=== PATIENT | male | born 1995 | race Caucasian/White ===

== ENCOUNTER 2020-09-22 00:27 | Emergency (ER) | payer OTHER ==
[2020-09-22] MEDS ORDERED: IPRATROPIUM/ALBUTEROL 3 ML NEB INH STA (00:56)
--- NOTE | 2020-09-22 01:49 | ED Physician Documentation ---
History of Present Illness - Stated complaint Stated Complaint: SOA - Chief complaint Chief Complaint: Resp - History obtained from History obtained from: Patient - Additonal information Additional information: 25-year-old man, previously healthy presents with wheezing and shortness of breath this morning progressively worsening over the course the day and acutely worsening after he ran out of his inhaler around noon today. He only used 1 puff before realizing that it was empty. Patient is a daily smoker and does not have a formal diagnosis of asthma, but states that after moving to [facility] he began to experience asthma-like symptoms and was given a inhaler by healthcare provider. He is working on getting set up with the pulmonology evaluation. Denies cough, fever, leg swelling, chest pain or pleurisy. He does state that back in April he had an upper respiratory infection but he was Covid negative and since that time he has had some chronic breathing issues. Review of Systems Ten Systems: 10 systems reviewed and negative Constitutional: denies: Fever, Chills Cardiac: denies: Chest pain / pressure Respiratory: reports: Dyspnea. denies: Cough PD PAST MEDICAL HISTORY - Past Medical History Past Medical History: No - Past Surgical History Past Surgical History: No - Present Medications Home Medications: Ambulatory Orders Medication Instructions Recorded Confirmed Albuterol Sulf [Ventolin Hfa 1 - 2 puffs INH Q4HR PRN #1 gm 09/22/20 Inhaler] Albuterol Sulfate [Proair Hfa 2 puffs IH Q4HR PRN 09/22/20 09/22/20 Inhaler] - Allergies Allergies/Adverse Reactions: Allergies Allergy/AdvReac Type Severity Reaction Status Date / Time No Known Drug Allergies Allergy Verified 09/22/20 00:40 - Social History Does the pt smoke?: Yes Smoking Status: Current every day smoker Does the pt drink ETOH?: Yes Does the pt have substance abuse?: No - Immunizations Immunizations are current?: Yes - POLST Patient has POLST: No PD ED PE NORMAL - Vitals Vital signs reviewed: Yes - General General: Alert and oriented X 3, No acute distress, Well developed/nourished - HEENT HEENT: Atraumatic, PERRL, EOMI, Moist mucous membranes - Neck Neck: Supple, no meningeal sign - Cardiac Cardiac: RRR - Respiratory Respiratory: Other (Bilateral scattered wheezing.) - Abdomen Abdomen: Non tender, Non distended - Derm Derm: Normal color - Extremities Extremities: No deformity, No edema - Neuro Neuro: Alert and oriented X 3 - Psych Psych: Normal mood, Normal affect Results - Vitals Vitals: Vital Signs - 24 hr 09/22/20 09/22/20 09/22/20 00:30 01:07 01:10 Temperature 36.4 C L Heart Rate 100 91 91 Respiratory 16 18 16 Rate Blood Pressure 127/85 H 112/77 O2 Saturation 96 99 Oxygen O2 Source T-piece PD MEDICAL DECISION MAKING - ED course ED course: 25-year-old man presented with acute shortness of breath starting this morning and progressively worsening after running out of albuterol inhaler at noon. He experienced significant relief with DuoNeb treatment and his chest x-ray was clear. repeat lung exam with improved air flow and no longer wheezing. Strict return precautions given. Education given about smoking cessation. Patient will follow up with [facility] for pulmonology referral. Departure - Departure Disposition: 01 Home, Self Care Clinical Impression: Asthma exacerbation Condition: Good Instructions: ALBUTEROL Oral Inhaler Prescriptions: Albuterol Sulf [Ventolin Hfa Inhaler] 1 - 2 puffs INH Q4HR PRN #1 gm PRN Reason: Shortness Of Air/Wheezing Comments: You are seen in the emergency department for an asthma exacerbation. I refilled your prescription for your albuterol but you need to see a research support specialist and have pulmonary function testing as soon as possible. [place] [facility]. Return for any new or worsening symptoms or other concerns.
[2020-09-22 02:05] VITALS: BP 118/79
--- NOTE | 2020-09-22 08:28 | XRAY Report ---
PROCEDURE: Chest 2 View X-Ray INDICATIONS: sob, wheezing TECHNIQUE: 2 view(s) of the chest. COMPARISON: None. FINDINGS: Surgical changes and devices: None. Lungs and pleura: No pleural effusions or pneumothorax. Lungs are clear. Mediastinum: Mediastinal contours are normal. Heart size is normal. Bones and chest wall: No suspicious bony abnormalities. Soft tissues appear unremarkable. IMPRESSION: No acute cardiopulmonary process demonstrated radiographically. Reviewed by: Nicolas Baig MD on 09/22/2020 8:27 AM PDT Approved by: Nicolas Baig MD on 09/22/2020 8:27 AM PDT Station ID: [id number]
== END 2020-09-22 02:05 | disposition home or self-care (01) ==
LOC: ED 00:27
DX: J45.901 Unspecified asthma with (acute) exacerbation (principal); F17.200 Nicotine dependence, unspecified, uncomplicated
CPT/HCPCS: 94640; 99283; 99284

== ENCOUNTER 2021-10-01 12:58 | Outpatient (CLI) | payer OTHER | END 2021-10-01 12:59 | disposition home or self-care (01) | LOC: RT 12:58 | PROVIDERS: ATTEND Family Medicine | DX: J45.909 Unspecified asthma, uncomplicated (principal) | CPT/HCPCS: 94010 ==